=== PATIENT | male | born 1985 | race Caucasian/White ===

== ENCOUNTER → 2020-08-23 | Outpatient (CLI) | payer OTHER ==
--- NOTE | 2020-08-24 04:22 | MR ---
EXAMINATION TYPE: MR thoracic spine wo con DATE OF EXAM: 08/23/2020 COMPARISON: None HISTORY: Back pain Multiplanar multiecho imaging of the thoracic spine was performed without contrast. The thoracic vertebra have normal alignment. Disc spaces are fairly normal. There is no compression f racture. Thoracic spinal cord has normal signal pattern. There is no evidence of edema. There is no t horacic spinal stenosis. There is no thoracic paraspinal mass. The neural foramina appear normal. IMPRESSION: Negative MR scan of the thoracic spine. No fracture. No spinal stenosis or thoracic disc herniation.
== END ==
LOC: RADMRIMAIN 17:02
PROVIDERS: ATTEND Family Medicine
DX: M54.6 Pain in thoracic spine (principal)
CPT/HCPCS: 72146